=== PATIENT | male | born 1935 | race Caucasian/White ===

== ENCOUNTER 2019-06-23 00:12 | Day surgery (SDC) | payer MEDICARE, OTHER ==
[~2019-06-23 00:12] MED LIST: AMLO5 PO; ASPI325 PO; ASPI81CH PO; CEFD300 PO; CEFU500 PO; CELE100 PO; CEPH500 PO; CIPR500 PO; Hydrochloroth12.5 MG PO; LEVFLO500 PO; LISI20 PO; LOVA40 PO; METF500 PO; MONDOXYNE NL100 MG PO; ROPI1 PO; WARF10 PO; WARF5 PO; WARF7.5 PO
== END 2019-06-23 15:40 | disposition home or self-care (01) ==
LOC: ATC 00:12
DX: N39.0 Urinary tract infection, site not specified (principal); J44.9 Chronic obstructive pulmonary disease, unspecified; E78.5 Hyperlipidemia, unspecified; E11.9 Type 2 diabetes mellitus without complications; I10 Essential (primary) hypertension; E78.00 Pure hypercholesterolemia, unspecified; Z88.5 Allergy status to narcotic agent; Z79.82 Long term (current) use of aspirin; Z79.84 Long term (current) use of oral hypoglycemic drugs; Z79.899 Other long term (current) drug therapy
CPT/HCPCS: 96365; J2185

== ENCOUNTER 2019-06-25 00:51 | Day surgery (SDC) | payer MEDICARE, OTHER | END 2019-06-25 14:20 | disposition home or self-care (01) | LOC: ATC 00:51 | DX: N39.0 Urinary tract infection, site not specified (principal); E78.00 Pure hypercholesterolemia, unspecified; I10 Essential (primary) hypertension; J44.9 Chronic obstructive pulmonary disease, unspecified; Z79.84 Long term (current) use of oral hypoglycemic drugs; Z79.82 Long term (current) use of aspirin; Z79.899 Other long term (current) drug therapy; Z88.5 Allergy status to narcotic agent | CPT/HCPCS: 96365; J2185 ==

== ENCOUNTER 2019-07-01 | Day surgery (SDC) | payer MEDICARE, OTHER ==
[2019-07-01] MEDS ORDERED: MEROPENEM1 GM IV (09:15)
== END 2019-07-01 16:31 | disposition home or self-care (01) ==
LOC: ATC
DX: N39.0 Urinary tract infection, site not specified (principal); E11.9 Type 2 diabetes mellitus without complications; I10 Essential (primary) hypertension; E78.00 Pure hypercholesterolemia, unspecified; J44.9 Chronic obstructive pulmonary disease, unspecified; Z88.5 Allergy status to narcotic agent; E78.5 Hyperlipidemia, unspecified; Z79.01 Long term (current) use of anticoagulants; Z79.82 Long term (current) use of aspirin; Z79.84 Long term (current) use of oral hypoglycemic drugs
CPT/HCPCS: 96365; J2185

== ENCOUNTER 2020-04-17 10:35 | Inpatient (IN) | payer MEDICARE, OTHER ==
[~2020-04-17] VITALS: Ht 185.4 cm; Wt 114.9 kg
[~2020-04-17 10:35] MED LIST changes: -ASPI81CH PO; +Aspirin EC81 MG PO; +MEROPENEM1 GM IV
[2020-04-17 11:45] LABS: BASOPHILS ABSOLUTE AUTO 0.03 K/mm3 (0.00-0.23); BASOPHILS PERCENT AUTO 0 % (0-2); EOSINOPHILS ABSOLUTE AUTO 0.01 K/mm3 (0.00-0.68); EOSINOPHILS PERCENT AUTO 0 % (0-6); IMMATURE GRAN ABSOLUTE AUTO 0.07 K/mm3 (0.00-0.10); IMMATURE GRAN PERCENT AUTO 1 % (0-1); LYMPHOCYTES ABSOLUTE AUTO 1.24 K/mm3 (0.84-5.20); LYMPHOCYTES PERCENT AUTO 8 % (21-46); MONOCYTES PERCENT AUTO 11 % (4-13); Mean Corpuscular HGB 27.5 pg (26.0-34.0); Mean Corpuscular HGB Conc 31.9 g/dL (31.5-36.5); Mean Corpuscular Volume 86 fL (80-100); Mean Platelet Volume 11.7 fL (9.1-12.4); NEUTROPHILS ABSOLUTE AUTO 12.25 K/mm3 (1.96-9.15); NEUTROPHILS PERCENT AUTO 80 % (41-73); Platelet Count 208 K/mm3 (150-400); RDW Coefficient Variation 14.2 % (11.7-14.2); RDW Standard Deviation 44.9 fL (35.1-46.3); Red Blood Cell Count 5.46 M/mm3 (4.30-5.90)
[2020-04-17 12:03] LABS: Alanine Aminotransfer (ALT/SGP 19 U/L (12-78); Albumin, Blood 3.2 g/dL (3.4-5.0); Albumin/Globulin Ratio 0.7 (0.8-1.8); Alk Phos 115 U/L (50-136); Anion Gap 10 mmol/L (6-16); Aspartate Aminotrans (AST/SGOT 23 U/L (12-37); Bilirubin, Total 1.1 mg/dL (0.1-1.0); Blood Urea Nitrogen 28 mg/dL (8-24); Bun/Creatinine Ratio 28.6 (12.0-20.0); CO2, Blood 19 mmol/L (21-32); Calcium, Blood 9.7 mg/dL (8.5-10.1); Chloride, Blood 108 mmol/L (98-108); Creatinine, Blood 0.98 mg/dL (0.60-1.20); Globulin, Blood 4.6 g/dL (2.2-4.0); Glomerular Filtration Rate >60 (60-); Glucose, Blood 167 mg/dL (70-99); Potassium, Blood 4.4 mmol/L (3.5-5.5); Sodium, Blood 137 mmol/L (136-145); Total Protein, Blood 7.8 g/dL (6.4-8.2); Troponin I 0.021 ng/mL (0.000-0.040)
[2020-04-17 12:03] LABS: Source, Urine Clean Catch
[2020-04-17 12:09] LABS: Appearance, Urine Clear (Clear); Bilirubin, Urine Neg (Neg); Blood, Urine 2+ (Neg); Color, Urine Yellow (P-Yellow); Glucose Qualitative, Urine 1+ (Neg); Ketones, Urine 1+ (Neg); Leukocyte Esterase, Urine 3+ (Neg); Nitrite, Urine Neg (Neg); Protein, Urine 2+ (Neg); Specific Gravity, Urine 1.015 (1.003-1.022); Urobilinogen, Urine NORM (Normal)
[2020-04-17 12:38] LABS: Bacteria Many /hpf; Squamous Epithelial Cells Rare /hpf (Few)
[2020-04-17] MEDS ORDERED: FUROSEMIDE20 MG PO (13:03)
[2020-04-17] MEDS ORDERED: POTA8 PO (13:05)
--- NOTE | 2020-04-18 04:37 | NUR ---
SHIFT SUMMARY PT WAS NEW ER ADMIT @1835, NO ACUTE CHANGES THIS SHIFT, NO C/O ANY KIND, UPDATED SON ON PT'S PHONE (PT IS VERY [place]), SLEPT T/O THE NIGHT & SLEEPING AT THIS TIME, CALL LIGHT IN REACH, WILL CONT TO MONITOR UNTIL REPORT GIVEN TO DAY RN.
[2020-04-18 05:16] LABS: BASOPHILS ABSOLUTE AUTO 0.03 K/mm3 (0.00-0.23); BASOPHILS PERCENT AUTO 0 % (0-2); EOSINOPHILS ABSOLUTE AUTO 0.01 K/mm3 (0.00-0.68); EOSINOPHILS PERCENT AUTO 0 % (0-6); Hematocrit 39.3 % (37.0-53.0); Hemoglobin 12.7 g/dL (13.5-17.5); IMMATURE GRAN ABSOLUTE AUTO 0.07 K/mm3 (0.00-0.10); IMMATURE GRAN PERCENT AUTO 1 % (0-1); LYMPHOCYTES ABSOLUTE AUTO 1.28 K/mm3 (0.84-5.20); LYMPHOCYTES PERCENT AUTO 9 % (21-46); MONOCYTES PERCENT AUTO 12 % (4-13); Mean Corpuscular HGB Conc 32.3 g/dL (31.5-36.5); Mean Corpuscular Volume 87 fL (80-100); Mean Platelet Volume 11.4 fL (9.1-12.4); NEUTROPHILS ABSOLUTE AUTO 10.64 K/mm3 (1.96-9.15); NEUTROPHILS PERCENT AUTO 78 % (41-73); Platelet Count 197 K/mm3 (150-400); RDW Coefficient Variation 14.2 % (11.7-14.2); RDW Standard Deviation 45.3 fL (35.1-46.3); Red Blood Cell Count 4.54 M/mm3 (4.30-5.90); White Blood Cell Count 13.73 K/mm3 (4.00-11.30)
[2020-04-18 05:39] LABS: Anion Gap 7 mmol/L (6-16); Blood Urea Nitrogen 37 mg/dL (8-24); Bun/Creatinine Ratio 32.5 (12.0-20.0); CO2, Blood 23 mmol/L (21-32); Chloride, Blood 110 mmol/L (98-108); Creatinine, Blood 1.14 mg/dL (0.60-1.20); Glomerular Filtration Rate >60 (60-); Glucose, Blood 191 mg/dL (70-99); Magnesium, Blood 2.4 mg/dL (1.6-2.4); Potassium, Blood 3.7 mmol/L (3.5-5.5); Sodium, Blood 140 mmol/L (136-145)
--- NOTE | 2020-04-18 17:36 | NUR ---
ADMIT: 04/17/20 DISCHARGE: DX: Severe sepsis secondary to uti CC: cpeabody PIETRO CALL: RESIDENCE: home with son lives in town. 2 STORY HOUSE, DOES NOT USE UPSTAIRS, 3 STEPS TO ENTER THE HOME. CAREGIVER: Michaela Talbert, Spouse / Partner, (has dementia); Jose Roberto Talbert, Son. Dawood Talbert, Son/POA. DX: HARD OF HEARING, HTN, Prostate cancer, Bilateral knee pain, Moribid obesity, DM-stype 2, see list DME: walker and cane, cpap in the hospital room. Sleeps in recliner. CCM: None HOME HEALTH: None SUMMARY: Admit 04/17/20 04/18/20 Met with Saud and SonJose Roberto in the patients room. PT and OT are both reccommending SNF in todays evaluations. Deo Cid says Saud and his would prefer that he not go to a SNF for rehab. They will most likely want home health for PT OT. PT is recommending a front wheel walker, Wheelchair and multimedia educational specialist care if returning home. Discussed care at home with Jose Roberto , gave him resources for caregivers, discussed medicaid and broshure for [place] and [place] [facility]. They own their home and have small income. Jose Roberto says himself or goes to the house everyday. but they do not have care in the home at this time. Asked if living with a family member was possible. He plans to speak with his brothers and sisters to discuss future planning and care. Will follow patient for discharge planning. cp 1: Sepsis due to urinary tract infection A/P: Lactic acid over 2, with mild tachycardia and leukocytosis. No septic shock. Started on Rocephin which his last urine culture was sensitive to. Blood and urine cultures pending. 2: Edema A/P: He is on lasix and HCTZ outpatient. Has 2+ pitting edema on exam. Last ECHO was 5 years ago and showed some grade I diastolic dysfunction. Edema has been worsening. Bilateral and equal. BNP mildly elevated, no pleural effusions/edema on CXR. -Compression socks. -Continue lasix and HCTZ, as tolerated. -ECHO ordered. 3: Hypertension A/P: Well controlled on admission. Continue home meds with hold parameters. 4: Weakness of both lower extremities A/P: PT/OT Likely secondary to UTI/sepsis and deconditioning. However it weakness is persistent, consider statin induced.
--- NOTE | 2020-04-18 18:45 | NUR ---
SHIFT SUMMARY PT IS A&O BUT IS HARD OF HEARING. PT IS 2 PERSON ASSIST WITH FWW TO CHAIR OR BEDSIDE COMODE. PT DENIES P/N/V. PT WAS UP IN THE CHAIR FOR PART OF THE DAY. PT HAD A 2 GRAM POS BLOOD CULTURES DURING THE SHIFT. NOTIFIED AND HE WAS STARTED ON VANCO. PT ACCEPTING OF CARE. PT IN BED WITH CALL LIGHT W/IN REACH.
--- NOTE | 2020-04-19 04:50 | NUR ---
Patient A&OX3. very [place]. No complaints of pain or discomfort overnight. No difficulties wearing CPAP. Did not get patient OOB, however was able to participate in repositioning. Suprapubic cath draining clear migue urine without sediment or odor. Very concerned about his for whom he is a caregiver. She has dementia. No changes from Evening report
[2020-04-19 05:45] LABS: BASOPHILS ABSOLUTE AUTO 0.02 K/mm3 (0.00-0.23); BASOPHILS PERCENT AUTO 0 % (0-2); EOSINOPHILS ABSOLUTE AUTO 0.05 K/mm3 (0.00-0.68); EOSINOPHILS PERCENT AUTO 0 % (0-6); Hematocrit 40.5 % (37.0-53.0); Hemoglobin 13.2 g/dL (13.5-17.5); IMMATURE GRAN ABSOLUTE AUTO 0.06 K/mm3 (0.00-0.10); IMMATURE GRAN PERCENT AUTO 0 % (0-1); LYMPHOCYTES ABSOLUTE AUTO 1.42 K/mm3 (0.84-5.20); LYMPHOCYTES PERCENT AUTO 10 % (21-46); MONOCYTES ABSOLUTE AUTO 1.37 K/mm3 (0.16-1.47); MONOCYTES PERCENT AUTO 9 % (4-13); Mean Corpuscular HGB 27.7 pg (26.0-34.0); Mean Corpuscular HGB Conc 32.6 g/dL (31.5-36.5); Mean Corpuscular Volume 85 fL (80-100); Mean Platelet Volume 11.9 fL (9.1-12.4); NEUTROPHILS ABSOLUTE AUTO 11.96 K/mm3 (1.96-9.15); NEUTROPHILS PERCENT AUTO 81 % (41-73); Platelet Count 208 K/mm3 (150-400); RDW Coefficient Variation 14.3 % (11.7-14.2); RDW Standard Deviation 44.2 fL (35.1-46.3); Red Blood Cell Count 4.77 M/mm3 (4.30-5.90); White Blood Cell Count 14.88 K/mm3 (4.00-11.30)
[2020-04-19 06:09] LABS: Alanine Aminotransfer (ALT/SGP 23 U/L (12-78); Albumin, Blood 2.5 g/dL (3.4-5.0); Albumin/Globulin Ratio 0.6 (0.8-1.8); Alk Phos 100 U/L (50-136); Anion Gap 10 mmol/L (6-16); Aspartate Aminotrans (AST/SGOT 24 U/L (12-37); Bilirubin, Total 0.7 mg/dL (0.1-1.0); Blood Urea Nitrogen 47 mg/dL (8-24); Bun/Creatinine Ratio 37.3 (12.0-20.0); CO2, Blood 20 mmol/L (21-32); Calcium, Blood 8.7 mg/dL (8.5-10.1); Chloride, Blood 108 mmol/L (98-108); Creatinine, Blood 1.26 mg/dL (0.60-1.20); Globulin, Blood 4.1 g/dL (2.2-4.0); Glomerular Filtration Rate 58 (60-); Glucose, Blood 222 mg/dL (70-99); Magnesium, Blood 2.4 mg/dL (1.6-2.4); Potassium, Blood 3.4 mmol/L (3.5-5.5); Sodium, Blood 138 mmol/L (136-145); Total Protein, Blood 6.6 g/dL (6.4-8.2)
[2020-04-19 06:15] LABS: C-REACTIVE PROTEIN, EXT RANGE >19.000 mg/dL (0.000-0.300)
--- NOTE | 2020-04-19 17:00 | NUR ---
SHIFT SUMMARY- PT A/OX3, FORGETFUL AT TIMES. VERY [place], BILATERAL HEARING AIDES IN PLACE. PT DENIES ANY COMPLAINTS T/O THE DAY. LS CLEAR, ON RA. CPAP AT HS, CONT BIOX IN PLACE. 1+ BLE EDEMA, HOWARD HOSE IN PLACE. PT UP TO CHAIR WITH 2 ASSIST, PT DID NOTE TO DO BETTER TODAY THAN YESTERDAY. SON BROUGHT IN LEG BRACES TODAY FOR PT TO WORK WITH THERAPY WITH. NEW IV PLACED. LUCAS BARNES'D. GOOD URINE OUTPUT WITH SUPRA PUBIC CATHETER. NO OTHER ACUTE CHANGES THIS SHIFT.
--- NOTE | 2020-04-19 17:10 | NUR ---
04/19/20, Physical Therapy Akin said Saud could be ready to go HOME by Friday, He would still need equipment and care at home. s/w Jose Roberto, son by telephone, requsting someone to come to his home to assess for safety, educated that Home health is only available once the patient is home. Updated Jose Roberto that Saud is showing improvement today and may be possible to go home later in the week. Discused Lift Chair, for insurance coverage of motor parts needs prescription, recommended he [facility] to [facility] to discuss chair availabily, cost and insurance coverage. Follow patient progress for home discharge.
--- NOTE | 2020-04-20 04:25 | NUR ---
SHIFT SUMMARY ADMITTED FOR SEPSIS. FULL CODE. AWAITING LABS & CULTURES TO IDENTIFY INFECTION, THEN POSSIBLY HOME W/HH VS PLACEMENT. CARE MANAGEMENT WILL ASSIST. FAMILY IS WONDERING IF THE SUPRAPUBIC CATHETER COULD BE CHANGED WHILE PT IS HERE AND THEY ARE WONDERING IF THE PT COULD GET EAR DROPS FOR HIS EAR WAX. TODAY THE PT WILL WORK WITH PYHYSICAL THERAPY. THE PT'S LEG BRACES ARE IN THE ROOM. PT IS SEVERELY [place], BILATERAL HEARING AIDS ARE IN ROOM.
[2020-04-20 05:09] LABS: BASOPHILS ABSOLUTE AUTO 0.04 K/mm3 (0.00-0.23); BASOPHILS PERCENT AUTO 0 % (0-2); EOSINOPHILS PERCENT AUTO 1 % (0-6); Hematocrit 38.9 % (37.0-53.0); Hemoglobin 12.5 g/dL (13.5-17.5); IMMATURE GRAN ABSOLUTE AUTO 0.09 K/mm3 (0.00-0.10); IMMATURE GRAN PERCENT AUTO 1 % (0-1); LYMPHOCYTES ABSOLUTE AUTO 1.69 K/mm3 (0.84-5.20); LYMPHOCYTES PERCENT AUTO 11 % (21-46); MONOCYTES ABSOLUTE AUTO 1.53 K/mm3 (0.16-1.47); MONOCYTES PERCENT AUTO 10 % (4-13); Mean Corpuscular HGB 27.5 pg (26.0-34.0); Mean Corpuscular HGB Conc 32.1 g/dL (31.5-36.5); Mean Corpuscular Volume 86 fL (80-100); Mean Platelet Volume 11.9 fL (9.1-12.4); NEUTROPHILS ABSOLUTE AUTO 12.36 K/mm3 (1.96-9.15); NEUTROPHILS PERCENT AUTO 78 % (41-73); Platelet Count 220 K/mm3 (150-400); RDW Coefficient Variation 14.2 % (11.7-14.2); RDW Standard Deviation 45.1 fL (35.1-46.3); Red Blood Cell Count 4.55 M/mm3 (4.30-5.90); White Blood Cell Count 15.81 K/mm3 (4.00-11.30)
[2020-04-20 05:27] LABS: Bun/Creatinine Ratio 40.9 (12.0-20.0); Calcium, Blood 8.5 mg/dL (8.5-10.1); Creatinine, Blood 1.64 mg/dL (0.60-1.20); Potassium, Blood 3.8 mmol/L (3.5-5.5)
--- NOTE | 2020-04-20 11:08 | NUR ---
04/20/20 s/w Son Jose Roberto by telephone- cell # [phone]. They are purchasing a lift chair today, will garbage pick up man tommorrow at [employer]. Have a front wheel walker at home. Home health services for PT OT [place]- preference is [facility]. They can drive him home if he can step up 2 stairs and walk 20 feet. I plan to review PT assessment today, family agrees to pay for transport if he cannot walk into the home. Wheel chair.
--- NOTE | 2020-04-20 15:03 | NUR ---
SON IN TO VISIT AND SHOWS RECEIPT FOR LIFT CHAIR THAT IS TO BE DELIVERED TOMORROW BETWEEN 10AM AND NOON. GOAL IS FOR PATIENT TO GO HOME WITH POSSIBLE HOME HEALTH. SON TAKES PATIENTS HEARING AIDS TO BE CLEANED.
--- NOTE | 2020-04-20 15:57 | NUR ---
ALERT. ORIENTED. VERY [place] TO THE POINT OF BETTER TO WRITE QUESTIONS ON PAPER FOR PATIENT. PER [facility] PATIENT MAX ASSIST TODAY. HEARING AIDS WITH SON SO HE CAN BRING THEM IN FOR CLEANING WITH SON TO BRING BACK TODAY OR TOMORROW.NO C/O FROM PATIENT. IV PATENT. SUPER PUBIC CATH TO DRAINING TO GRAVITY. POSSIBLE D'C TO HOME TOMORROW WITH HOME HEALTH AND RELATIVES FOR ASSISTANCE. [facility].
--- NOTE | 2020-04-20 18:03 | NUR ---
TOOK OVER CARE AT 1630. PT AO AND COOPERATIVE OF CARE. WILL CONTIUE TO MONITOR. PT UP IN CHAIR FOR MEAL CALL LIGHT WITHIN REACH. PT DENIES ANY NEEDS AT THIS TIME.
--- NOTE | 2020-04-21 04:13 | NUR ---
SHIFT SUMMARY ADMITTED FOR SEPSIS/UTI. FULL CODE. PLAN IS FOR DC W/HH. FAMILY IS AVAILABLE FOR ASSISTANCE W/CARE. HE USES A CPAP AT NIGHT. SEVERELY [place]. LEG BRACES FOR WALKING ARE IN THE ROOM. CHRONIC SUPRAPUBIC CATHETER IS IN PLACE.
[2020-04-21] MEDS ORDERED: CEFD300 PO ×2 (14:01→14:05)
--- NOTE | 2020-04-21 14:45 | NUR ---
PT DISCHARGE REVIEWED WITH PT AND SON. VERVBALIZED UNDERSTANDING MEDS AND INST. IV PULLED INTACT. NO TELE. PT WHEELED TO DOOR BY TRANSPORT AT 1440
--- NOTE | 2020-04-21 18:32 | NUR ---
MORIS: ADMIT 04/17/20 04/21/20 DISCHARGE HOME TODAY BY WHEELCHAIR TRANSPORT. BECCA IS STILL A 2 PERSON ASSIST FOR STANDING. NEW LIFT CHAIR DELIVERED TO HOME YESTERDAY. FAMILY WILL PURCHASE A COMMODE. HOME HEALTH WITH [facility] WAS ORDERED, NURSE, PT OT BATHAID DIGITAL ANALYTICS MANAGER. ASSISTED LIVING IS BEING CONSIDERED FOR THE FUTURE, FAMILY IS PROVIDING THE SERVICE PLUMBER CARE RECCOMMENDED BY PT OT ASSESSMENTS. JED IS EXPECTING PIETRO CALL, HAS FACE TO FACE CAPABILITY FOR TELEHEALTH.
[2020-07-17] MEDS ORDERED: ACET500 PO (16:33)
[2020-07-17] MEDS ORDERED: TOPICAINE113 GM TD (16:40)
[2020-07-17] MEDS ORDERED: ATOR20 PO (16:40)
[2020-07-17] MEDS ORDERED: METHENAMINE MAND1 GM PO (16:41)
[2020-07-17] MEDS ORDERED: LASIX20 M2 PO (16:42)
[2020-07-17] MEDS ORDERED: MELATONIN5 M1 PO (16:42)
== END 2020-04-21 14:37 | disposition home health service (06) | DRG 871 ==
LOC: ER 10:35 → MEDS 16:02 → ENPENDDIS 04-21 13:04 → MEDS 04-21 14:37
PROVIDERS: Emergency Medicine; Hospitalist; Internal Medicine; ADMIT Student in an Organized Health Care Education/Training Program
DX: A41.9 Sepsis, unspecified organism (principal); G93.41 Metabolic encephalopathy; I50.23 Acute on chronic systolic (congestive) heart failure; N17.9 Acute kidney failure, unspecified; R65.20 Severe sepsis without septic shock; Z20.822 Contact with and (suspected) exposure to COVID-19; G47.33 Obstructive sleep apnea (adult) (pediatric); I11.0 Hypertensive heart disease with heart failure; E11.9 Type 2 diabetes mellitus without complications; Z85.46 Personal history of malignant neoplasm of prostate; Z86.718 Personal history of other venous thrombosis and embolism; F03.90 Unspecified dementia, unspecified severity, without behavioral disturbance, psychotic disturbance, mood disturbance, and anxiety; H91.90 Unspecified hearing loss, unspecified ear; G31.84 Mild cognitive impairment of uncertain or unknown etiology; M17.0 Bilateral primary osteoarthritis of knee
CPT/HCPCS: 36415; 71046; 80048; 80053; 81001; 82947; 83605; 83735; 83880; 84100; 84484; 85025; 85651; 86140; 87040; 87077; 87086; 87186; 93005; 93010; 94660; 94762; 96365; 97110; 97116; 97129; 97130; 97162; 97166; 97530; 97535; 99285-25; A9270; C8929; J0696; J1650; J1940; J3370; J7050; Q9957

== ENCOUNTER → 2020-05-11 | Outpatient (CLI) | payer MEDICARE, OTHER ==
[~2020-05-11] MED LIST changes: +ACET500 PO; +ATOR20 PO; +FUROSEMIDE20 MG PO; +LASIX20 M2 PO; +MELATONIN5 M1 PO; +METHENAMINE MAND1 GM PO; +POTA8 PO; +TOPICAINE113 GM TD
[2020-05-11 19:53] LABS: BASOPHILS ABSOLUTE AUTO 0.05 K/mm3 (0.00-0.23); BASOPHILS PERCENT AUTO 0 % (0-2); EOSINOPHILS ABSOLUTE AUTO 0.34 K/mm3 (0.00-0.68); EOSINOPHILS PERCENT AUTO 2 % (0-6); Hematocrit 41.8 % (37.0-53.0); Hemoglobin 12.8 g/dL (13.5-17.5); IMMATURE GRAN ABSOLUTE AUTO 0.27 K/mm3 (0.00-0.10); IMMATURE GRAN PERCENT AUTO 2 % (0-1); LYMPHOCYTES ABSOLUTE AUTO 1.86 K/mm3 (0.84-5.20); LYMPHOCYTES PERCENT AUTO 12 % (21-46); MONOCYTES PERCENT AUTO 6 % (4-13); Mean Corpuscular HGB 26.8 pg (26.0-34.0); Mean Corpuscular HGB Conc 30.6 g/dL (31.5-36.5); Mean Corpuscular Volume 87 fL (80-100); Mean Platelet Volume 11.9 fL (9.1-12.4); NEUTROPHILS ABSOLUTE AUTO 11.98 K/mm3 (1.96-9.15); NEUTROPHILS PERCENT AUTO 78 % (41-73); Platelet Count 317 K/mm3 (150-400); RDW Coefficient Variation 14.1 % (11.7-14.2); RDW Standard Deviation 45.6 fL (35.1-46.3); Red Blood Cell Count 4.78 M/mm3 (4.30-5.90)
[2020-05-11 20:11] LABS: Albumin, Blood 2.4 g/dL (3.4-5.0); Anion Gap 8 mmol/L (6-16); Blood Urea Nitrogen 41 mg/dL (8-24); Bun/Creatinine Ratio 44.1 (12.0-20.0); CO2, Blood 24 mmol/L (21-32); Calcium, Blood 9.9 mg/dL (8.5-10.1); Chloride, Blood 107 mmol/L (98-108); Creatinine, Blood 0.93 mg/dL (0.60-1.20); Glomerular Filtration Rate >60 (60-); Glucose, Blood 151 mg/dL (70-99); Phosphorus, Blood 3.4 mg/dL (2.5-4.9); Potassium, Blood 4.6 mmol/L (3.5-5.5); Sodium, Blood 139 mmol/L (136-145)
== END | disposition home or self-care (01) ==
LOC: PLD 19:26 → LAB SHORT 19:26
PROVIDERS: Family Medicine
DX: N17.9 Acute kidney failure, unspecified (principal); E11.69 Type 2 diabetes mellitus with other specified complication; N39.0 Urinary tract infection, site not specified
CPT/HCPCS: 80069; 83036; 85025; 86140

== ENCOUNTER → 2020-05-15 | Outpatient (CLI) | payer MEDICARE, OTHER | END | disposition home or self-care (01) | LOC: LAB SHORT 14:44 → LAB 14:44 | DX: N39.0 Urinary tract infection, site not specified (principal) | CPT/HCPCS: 87077; 87086; 87186 ==

== ENCOUNTER → 2020-05-19 | Outpatient (CLI) | payer MEDICARE, OTHER ==
[2020-05-19 13:40] LABS: Source, Urine Catheter
[2020-05-19 13:58] LABS: Appearance, Urine Hazy (Clear); Bilirubin, Urine Neg (Neg); Blood, Urine 5+ (Neg); Color, Urine Yellow (P-Yellow); Glucose Qualitative, Urine Neg (Neg); Ketones, Urine Neg (Neg); Leukocyte Esterase, Urine 2+ (Neg); Nitrite, Urine Neg (Neg); Protein, Urine 1+ (Neg); Specific Gravity, Urine 1.015 (1.003-1.022); Urobilinogen, Urine NORM (Normal)
[2020-05-19 14:45] LABS: Bacteria Rare /hpf; Squamous Epithelial Cells Not Seen /hpf (Few)
== END | disposition home or self-care (01) ==
LOC: LAB SHORT 12:30 → LAB 12:30
PROVIDERS: Family Medicine
DX: N39.0 Urinary tract infection, site not specified (principal)
CPT/HCPCS: 81001; 87077; 87086; 87186

== ENCOUNTER → 2020-05-22 | Outpatient (CLI) | payer MEDICARE, OTHER ==
[2020-05-22 19:37] LABS: BASOPHILS ABSOLUTE AUTO 0.05 K/mm3 (0.00-0.23); BASOPHILS PERCENT AUTO 0 % (0-2); EOSINOPHILS ABSOLUTE AUTO 0.29 K/mm3 (0.00-0.68); EOSINOPHILS PERCENT AUTO 2 % (0-6); Hematocrit 35.2 % (37.0-53.0); IMMATURE GRAN PERCENT AUTO 1 % (0-1); LYMPHOCYTES ABSOLUTE AUTO 2.04 K/mm3 (0.84-5.20); LYMPHOCYTES PERCENT AUTO 13 % (21-46); MONOCYTES ABSOLUTE AUTO 1.05 K/mm3 (0.16-1.47); MONOCYTES PERCENT AUTO 7 % (4-13); Mean Corpuscular HGB 26.6 pg (26.0-34.0); Mean Corpuscular HGB Conc 31.3 g/dL (31.5-36.5); Mean Corpuscular Volume 85 fL (80-100); Mean Platelet Volume 11.2 fL (9.1-12.4); NEUTROPHILS ABSOLUTE AUTO 11.96 K/mm3 (1.96-9.15); NEUTROPHILS PERCENT AUTO 77 % (41-73); Platelet Count 367 K/mm3 (150-400); RDW Coefficient Variation 14.3 % (11.7-14.2); RDW Standard Deviation 44.8 fL (35.1-46.3); Red Blood Cell Count 4.13 M/mm3 (4.30-5.90); White Blood Cell Count 15.59 K/mm3 (4.00-11.30)
[2020-05-22 19:44] LABS: Anion Gap 8 mmol/L (6-16); Blood Urea Nitrogen 41 mg/dL (8-24); Bun/Creatinine Ratio 39.8 (12.0-20.0); CO2, Blood 22 mmol/L (21-32); Calcium, Blood 9.3 mg/dL (8.5-10.1); Chloride, Blood 109 mmol/L (98-108); Creatinine, Blood 1.03 mg/dL (0.60-1.20); Glomerular Filtration Rate >60 (60-); Glucose, Blood 104 mg/dL (70-99); Potassium, Blood 5.1 mmol/L (3.5-5.5); Sodium, Blood 139 mmol/L (136-145)
== END | disposition home or self-care (01) ==
LOC: LAB 12:30 → LAB SHORT 12:30
PROVIDERS: Family Medicine
DX: I50.20 Unspecified systolic (congestive) heart failure (principal); N39.0 Urinary tract infection, site not specified
CPT/HCPCS: 80048; 85025; 86140

== ENCOUNTER 2020-07-18 06:48 | Day surgery (SDC) | payer MEDICARE, OTHER ==
[~2020-07-18] VITALS: Ht 177.8 cm; Wt 105.5 kg
--- NOTE | 2020-07-18 11:36 | NUR ---
PT TR BAND REMOVED, DRESSING/SPLINT PLACED TO R WRIST, IV DC'D INTACT, PT DRESSED AND 2 PERSON ASSIST TO WC. PT DC'D BY WC BY THIS RN, SON/DAUGHTERINLAW DRIVING PT HOME.
== END 2020-07-18 12:00 | disposition home or self-care (01) ==
LOC: MHTC 06:48
DX: I25.10 Atherosclerotic heart disease of native coronary artery without angina pectoris (principal); I48.0 Paroxysmal atrial fibrillation; I47.2 Ventricular tachycardia; E11.9 Type 2 diabetes mellitus without complications; I10 Essential (primary) hypertension; I25.5 Ischemic cardiomyopathy; G47.33 Obstructive sleep apnea (adult) (pediatric); Z79.84 Long term (current) use of oral hypoglycemic drugs
CPT/HCPCS: 76937; 82947; 93458; 99152; 99153; C1769; C1894; J1644; J2250; J3010; J7030; J7050; Q9967

== ENCOUNTER → 2020-12-28 | Outpatient (CLI) | payer MEDICARE, OTHER ==
[~2020-12-28] MED LIST changes: +ASCO500 PO; +DOXY100 PO; +ELIQUIS2.5 MG PO; +LIDOCAINE1 EAC1 TOP; +MULTI-VITAMIN1 EAC2 PO; +Prinivil10 MG PO; +SPIR25 PO; -TOPICAINE113 GM TD; +VITAMIN D31000 UNI1 PO; +VOLTAREN ARTHRI20 GM TOP
[2020-12-28 15:44] LABS: BASOPHILS ABSOLUTE AUTO 0.05 K/mm3 (0.00-0.23); BASOPHILS PERCENT AUTO 0 % (0-2); EOSINOPHILS ABSOLUTE AUTO 0.16 K/mm3 (0.00-0.68); EOSINOPHILS PERCENT AUTO 1 % (0-6); Hematocrit 26.8 % (37.0-53.0); Hemoglobin 8.2 g/dL (13.5-17.5); IMMATURE GRAN PERCENT AUTO 1 % (0-1); LYMPHOCYTES ABSOLUTE AUTO 2.47 K/mm3 (0.84-5.20); LYMPHOCYTES PERCENT AUTO 14 % (21-46); MONOCYTES ABSOLUTE AUTO 1.05 K/mm3 (0.16-1.47); MONOCYTES PERCENT AUTO 6 % (4-13); Mean Corpuscular HGB Conc 30.6 g/dL (31.5-36.5); Mean Corpuscular Volume 82 fL (80-100); Mean Platelet Volume 10.7 fL (9.1-12.4); NEUTROPHILS ABSOLUTE AUTO 13.46 K/mm3 (1.96-9.15); NEUTROPHILS PERCENT AUTO 77 % (41-73); Platelet Count 394 K/mm3 (150-400); RDW Coefficient Variation 17.3 % (11.7-14.2); RDW Standard Deviation 50.8 fL (35.1-46.3); Red Blood Cell Count 3.28 M/mm3 (4.30-5.90); White Blood Cell Count 17.39 K/mm3 (4.00-11.30)
[2020-12-28 15:56] LABS: Alanine Aminotransfer (ALT/SGP 22 U/L (12-78); Albumin, Blood 2.4 g/dL (3.4-5.0); Albumin/Globulin Ratio 0.6 (0.8-1.8); Alk Phos 130 U/L (40-126); Anion Gap 16 mmol/L (6-16); Aspartate Aminotrans (AST/SGOT 15 U/L (12-37); Bilirubin, Total 0.4 mg/dL (0.1-1.0); Blood Urea Nitrogen 50 mg/dL (8-24); Bun/Creatinine Ratio 30.7 (12.0-20.0); CO2, Blood 18 mmol/L (21-32); Chloride, Blood 107 mmol/L (98-108); Creatinine, Blood 1.63 mg/dL (0.60-1.20); Globulin, Blood 4.2 g/dL (2.2-4.0); Glomerular Filtration Rate 40 (60-); Glucose, Blood 139 mg/dL (70-99); Potassium, Blood 4.6 mmol/L (3.5-5.5); Sodium, Blood 141 mmol/L (136-145); Total Protein, Blood 6.6 g/dL (6.4-8.2)
[2020-12-28 15:57] LABS: Troponin I <0.017 ng/mL (0.000-0.040)
== END | disposition home or self-care (01) ==
LOC: LAB 15:37 → LAB SHORT 15:37
PROVIDERS: Chiropractor
DX: I95.9 Hypotension, unspecified (principal); E86.0 Dehydration; R82.79 Other abnormal findings on microbiological examination of urine
CPT/HCPCS: 80053; 83880; 84484; 85025; 87077; 87086; 87186

== ENCOUNTER → 2020-12-29 | Outpatient (CLI) | payer MEDICARE, OTHER ==
[2020-12-29 09:35] LABS: BASOPHILS ABSOLUTE AUTO 0.06 K/mm3 (0.00-0.23); BASOPHILS PERCENT AUTO 0 % (0-2); EOSINOPHILS ABSOLUTE AUTO 0.13 K/mm3 (0.00-0.68); EOSINOPHILS PERCENT AUTO 1 % (0-6); Hematocrit 28.4 % (37.0-53.0); Hemoglobin 8.7 g/dL (13.5-17.5); IMMATURE GRAN ABSOLUTE AUTO 0.19 K/mm3 (0.00-0.10); IMMATURE GRAN PERCENT AUTO 1 % (0-1); LYMPHOCYTES ABSOLUTE AUTO 2.31 K/mm3 (0.84-5.20); LYMPHOCYTES PERCENT AUTO 14 % (21-46); MONOCYTES ABSOLUTE AUTO 0.95 K/mm3 (0.16-1.47); MONOCYTES PERCENT AUTO 6 % (4-13); Mean Corpuscular HGB 25.4 pg (26.0-34.0); Mean Corpuscular HGB Conc 30.6 g/dL (31.5-36.5); Mean Corpuscular Volume 83 fL (80-100); Mean Platelet Volume 10.5 fL (9.1-12.4); NEUTROPHILS ABSOLUTE AUTO 13.26 K/mm3 (1.96-9.15); NEUTROPHILS PERCENT AUTO 78 % (41-73); Platelet Count 429 K/mm3 (150-400); RDW Coefficient Variation 17.5 % (11.7-14.2); RDW Standard Deviation 52.2 fL (35.1-46.3); Red Blood Cell Count 3.43 M/mm3 (4.30-5.90)
[2020-12-29 09:44] LABS: Albumin, Blood 2.5 g/dL (3.4-5.0); Albumin/Globulin Ratio 0.6 (0.8-1.8); Bilirubin, Total 0.3 mg/dL (0.1-1.0); Bun/Creatinine Ratio 33.3 (12.0-20.0); Calcium, Blood 9.1 mg/dL (8.5-10.1); Creatinine, Blood 1.53 mg/dL (0.60-1.20); Globulin, Blood 4.5 g/dL (2.2-4.0); Potassium, Blood 4.5 mmol/L (3.5-5.5)
== END | disposition home or self-care (01) ==
LOC: LAB SHORT 09:30 → LAB 09:30
PROVIDERS: Physician Assistant Surgical
DX: I95.9 Hypotension, unspecified (principal)
CPT/HCPCS: 80053; 83880; 85025

== ENCOUNTER 2020-12-30 12:52 | Inpatient (IN) | payer MEDICARE, OTHER ==
[~2020-12-30] VITALS: Ht 177.8 cm; Wt 98.2 kg
[~2020-12-30 12:52] MED LIST changes: -ASCO500 PO; -DOXY100 PO; -ELIQUIS2.5 MG PO; -MULTI-VITAMIN1 EAC2 PO; -SPIR25 PO; -VITAMIN D31000 UNI1 PO; -VOLTAREN ARTHRI20 GM TOP
[2020-12-30 14:21] LABS: BASOPHILS ABSOLUTE AUTO 0.04 K/mm3 (0.00-0.23); BASOPHILS PERCENT AUTO 0 % (0-2); EOSINOPHILS ABSOLUTE AUTO 0.19 K/mm3 (0.00-0.68); EOSINOPHILS PERCENT AUTO 1 % (0-6); Hematocrit 25.5 % (37.0-53.0); Hemoglobin 7.9 g/dL (13.5-17.5); IMMATURE GRAN ABSOLUTE AUTO 0.17 K/mm3 (0.00-0.10); IMMATURE GRAN PERCENT AUTO 1 % (0-1); LYMPHOCYTES PERCENT AUTO 14 % (21-46); MONOCYTES ABSOLUTE AUTO 1.04 K/mm3 (0.16-1.47); MONOCYTES PERCENT AUTO 6 % (4-13); Mean Corpuscular HGB 25.3 pg (26.0-34.0); Mean Corpuscular Volume 82 fL (80-100); NEUTROPHILS ABSOLUTE AUTO 13.15 K/mm3 (1.96-9.15); NEUTROPHILS PERCENT AUTO 78 % (41-73); Platelet Count 332 K/mm3 (150-400); RDW Coefficient Variation 17.1 % (11.7-14.2); RDW Standard Deviation 50.4 fL (35.1-46.3); Red Blood Cell Count 3.12 M/mm3 (4.30-5.90); White Blood Cell Count 16.89 K/mm3 (4.00-11.30)
[2020-12-30 14:30] LABS: Anion Gap 7 mmol/L (6-16); Blood Urea Nitrogen 36 mg/dL (8-24); Bun/Creatinine Ratio 37.4 (12.0-20.0); CO2, Blood 19 mmol/L (21-32); Chloride, Blood 115 mmol/L (98-108); Creatinine, Blood 0.96 mg/dL (0.60-1.20); Glomerular Filtration Rate >60 (60-); Glucose, Blood 104 mg/dL (70-99); Potassium, Blood 4.6 mmol/L (3.5-5.5); Sodium, Blood 141 mmol/L (136-145)
[2020-12-30 16:05] LABS: SARS-Cov-2 (COVID-19) PCR, MMC NEGATIVE (NEGATIVE)
[2020-12-30 16:30] LABS: Source, Urine Catheter
[2020-12-30 16:35] LABS: Appearance, Urine Clear (Clear); Bilirubin, Urine Neg (Neg); Blood, Urine Neg (Neg); Color, Urine Yellow (P-Yellow); Glucose Qualitative, Urine Neg (Neg); Ketones, Urine Neg (Neg); Leukocyte Esterase, Urine Neg (Neg); Nitrite, Urine Neg (Neg); Protein, Urine Neg (Neg); Urobilinogen, Urine NORM (Normal)
[2020-12-30] MEDS ORDERED: ELIQUIS2.5 MG PO (17:43)
[2020-12-30] MEDS ORDERED: SPIR25 PO (17:44)
--- NOTE | 2020-12-30 20:25 | NUR ---
TRANSFER NOTE REPORT FROM CHANNING TY RN. PT TO FLOOR BY RASTA AND ANGELITA TO HOSPITAL BED. PT ORIENTED TO ROOM AND UNIT. CALL LIGHT WITHIN REACH.
[2020-12-30 20:48] LABS: Percent Saturation 9.6 % (20.0-50.0)
[2020-12-30 21:07] LABS: Thyroid Stimulating Hormone 1.6 uIU/mL (0.360-4.800)
[2020-12-30] MEDS ORDERED: VOLTAREN ARTHRI20 GM TOP (22:27)
[2020-12-31 05:14] LABS: BASOPHILS ABSOLUTE AUTO 0.06 K/mm3 (0.00-0.23); BASOPHILS PERCENT AUTO 0 % (0-2); EOSINOPHILS ABSOLUTE AUTO 0.47 K/mm3 (0.00-0.68); EOSINOPHILS PERCENT AUTO 3 % (0-6); Hematocrit 25.2 % (37.0-53.0); Hemoglobin 7.6 g/dL (13.5-17.5); IMMATURE GRAN ABSOLUTE AUTO 0.15 K/mm3 (0.00-0.10); IMMATURE GRAN PERCENT AUTO 1 % (0-1); LYMPHOCYTES ABSOLUTE AUTO 2.29 K/mm3 (0.84-5.20); LYMPHOCYTES PERCENT AUTO 16 % (21-46); MONOCYTES ABSOLUTE AUTO 1.04 K/mm3 (0.16-1.47); MONOCYTES PERCENT AUTO 7 % (4-13); Mean Corpuscular HGB 25.5 pg (26.0-34.0); Mean Corpuscular HGB Conc 30.2 g/dL (31.5-36.5); Mean Corpuscular Volume 85 fL (80-100); Mean Platelet Volume 10.8 fL (9.1-12.4); NEUTROPHILS ABSOLUTE AUTO 10.66 K/mm3 (1.96-9.15); NEUTROPHILS PERCENT AUTO 73 % (41-73); Platelet Count 333 K/mm3 (150-400); RDW Coefficient Variation 17.4 % (11.7-14.2); RDW Standard Deviation 53.4 fL (35.1-46.3); Red Blood Cell Count 2.98 M/mm3 (4.30-5.90); White Blood Cell Count 14.67 K/mm3 (4.00-11.30)
[2020-12-31 05:42] LABS: Alanine Aminotransfer (ALT/SGP 20 U/L (12-78); Albumin, Blood 1.7 g/dL (3.4-5.0); Albumin/Globulin Ratio 0.4 (0.8-1.8); Alk Phos 119 U/L (50-136); Anion Gap 6 mmol/L (6-16); Aspartate Aminotrans (AST/SGOT 19 U/L (12-37); Bilirubin, Total 0.3 mg/dL (0.1-1.0); Blood Urea Nitrogen 34 mg/dL (8-24); Bun/Creatinine Ratio 30.4 (12.0-20.0); CO2, Blood 21 mmol/L (21-32); Calcium, Blood 8.8 mg/dL (8.5-10.1); Chloride, Blood 114 mmol/L (98-108); Creatinine, Blood 1.12 mg/dL (0.60-1.20); Globulin, Blood 3.9 g/dL (2.2-4.0); Glomerular Filtration Rate >60 (60-); Glucose, Blood 119 mg/dL (70-99); Potassium, Blood 4.6 mmol/L (3.5-5.5); Sodium, Blood 141 mmol/L (136-145); Total Protein, Blood 5.6 g/dL (6.4-8.2)
--- NOTE | 2020-12-31 06:05 | NUR ---
DEPUTY OF COUNTER INTELLIGENCE SUMMARY ADMITTED FOR SEPSIS SECONDARY TO [facility]. PT IS FULL CODE. PT FROM [facility] WITH [facility] IN MULTIPLE STAGES (PICTURES IN CHART). PT CONTINUES TO HAVE BLOOD PRESSURE IN THE 90S SYSTOLIC - PT DENIES DIZZINESS OR OTHER SYMPTOMS. PT RECEIVED IV ABX X2 AND LR X1 BAG. NO OTHER CONCERNS THIS SHIFT. ISOLATION MAINTAINED.
--- NOTE | 2020-12-31 16:37 | NUR ---
SHIFT SUMMARY PT ALERT AND APPEARS ORIENTED, DIFFICULT TO ASSESS HE IS [place] AND NEEDS A BATTERY FOR HIS HEARING AID, WE DO NOT HAVE THE KIND HE NEEDS HERE. PT ABLE TO MAKE NEEDS KNOWN. SUPRAPUBIC CHRONIC VALENCIA CLEAN AND INTACT DRAINING WITH NO DEPENDEDNT LOOPS. PT CAN MAKE NEEDS KNOWN. WOUND CARE COMPLETED TODAY.
--- NOTE | 2021-01-01 02:39 | NUR ---
1 UNIT OF PRBC GIVEN. PT TOLERATED WELL. NO SIGN OF REACTION OBSERVED/REPORTED. PT EDUCATED TO REPORT ANY SIGNS OF DELAYED REACTION VIA WRITTEN NOTE. PT INDICATES UNDERSTANDING. PT IS RESTING AT THIS TIME.
[2021-01-01 04:19] LABS: BASOPHILS ABSOLUTE AUTO 0.09 K/mm3 (0.00-0.23); BASOPHILS PERCENT AUTO 1 % (0-2); EOSINOPHILS ABSOLUTE AUTO 0.67 K/mm3 (0.00-0.68); EOSINOPHILS PERCENT AUTO 5 % (0-6); Hematocrit 27.5 % (37.0-53.0); Hemoglobin 8.5 g/dL (13.5-17.5); IMMATURE GRAN ABSOLUTE AUTO 0.21 K/mm3 (0.00-0.10); IMMATURE GRAN PERCENT AUTO 1 % (0-1); LYMPHOCYTES PERCENT AUTO 19 % (21-46); MONOCYTES ABSOLUTE AUTO 0.83 K/mm3 (0.16-1.47); MONOCYTES PERCENT AUTO 6 % (4-13); Mean Corpuscular HGB 25.8 pg (26.0-34.0); Mean Corpuscular HGB Conc 30.9 g/dL (31.5-36.5); Mean Corpuscular Volume 83 fL (80-100); Mean Platelet Volume 10.6 fL (9.1-12.4); NEUTROPHILS ABSOLUTE AUTO 10.12 K/mm3 (1.96-9.15); NEUTROPHILS PERCENT AUTO 69 % (41-73); Platelet Count 342 K/mm3 (150-400); RDW Standard Deviation 50.9 fL (35.1-46.3); White Blood Cell Count 14.62 K/mm3 (4.00-11.30)
[2021-01-01 04:40] LABS: Albumin, Blood 1.8 g/dL (3.4-5.0); Anion Gap 7 mmol/L (6-16); Blood Urea Nitrogen 33 mg/dL (8-24); Bun/Creatinine Ratio 34.2 (12.0-20.0); CO2, Blood 20 mmol/L (21-32); Calcium, Blood 8.6 mg/dL (8.5-10.1); Chloride, Blood 111 mmol/L (98-108); Creatinine, Blood 0.97 mg/dL (0.60-1.20); Glomerular Filtration Rate >60 (60-); Glucose, Blood 115 mg/dL (70-99); Magnesium, Blood 2.1 mg/dL (1.6-2.4); Phosphorus, Blood 3.8 mg/dL (2.5-4.9); Potassium, Blood 4.6 mmol/L (3.5-5.5); Sodium, Blood 138 mmol/L (136-145)
[2021-01-01 04:49] LABS: Vancomycin, Trough 24.5 ug/mL (5.0-10.0)
--- NOTE | 2021-01-01 05:59 | NUR ---
END OF SHIFT SUMMARY: One unit of PRBC infused. Pt torelated well. No symptoms of reaction observed at this time. Pt positive and enthusiastic about getting better. Pt is very hard of hearing and nursing education is better received through written notes. Pt turned/repositioned q2hrs. Lab called reporting pt's critical vanc trough. Pharmacy notified. Pt resting at this time. Call light within reach.
--- NOTE | 2021-01-01 17:07 | NUR ---
SHIFT SUMMARY PT ALERT AND ORIENTED ABLE TO MAKE NEEDS KNOWN. OBTAINED BATTERY FOR HEARING AID TODAY, PT HAS SUPERPUBIC VALENCIA DRAINING WELL. DUE TO BE CHANGED 01/03, CHANGED DRESSING ON SACRUM, LESS BLEEDING NOTED STILL FRAGILE PURPLE SKIN TURN Q2 AND KEEPING CLEAN.
[2021-01-02 05:56] LABS: BASOPHILS ABSOLUTE AUTO 0.09 K/mm3 (0.00-0.23); BASOPHILS PERCENT AUTO 1 % (0-2); EOSINOPHILS ABSOLUTE AUTO 0.79 K/mm3 (0.00-0.68); EOSINOPHILS PERCENT AUTO 6 % (0-6); Hematocrit 29.1 % (37.0-53.0); IMMATURE GRAN ABSOLUTE AUTO 0.19 K/mm3 (0.00-0.10); IMMATURE GRAN PERCENT AUTO 1 % (0-1); LYMPHOCYTES PERCENT AUTO 23 % (21-46); MONOCYTES ABSOLUTE AUTO 0.84 K/mm3 (0.16-1.47); MONOCYTES PERCENT AUTO 6 % (4-13); Mean Corpuscular HGB 25.9 pg (26.0-34.0); Mean Corpuscular HGB Conc 30.9 g/dL (31.5-36.5); Mean Corpuscular Volume 84 fL (80-100); Mean Platelet Volume 10.7 fL (9.1-12.4); NEUTROPHILS ABSOLUTE AUTO 8.36 K/mm3 (1.96-9.15); NEUTROPHILS PERCENT AUTO 63 % (41-73); Platelet Count 350 K/mm3 (150-400); RDW Coefficient Variation 17.2 % (11.7-14.2); RDW Standard Deviation 52.2 fL (35.1-46.3); Red Blood Cell Count 3.48 M/mm3 (4.30-5.90); White Blood Cell Count 13.37 K/mm3 (4.00-11.30)
[2021-01-02 06:10] LABS: Albumin, Blood 1.7 g/dL (3.4-5.0); Anion Gap 7 mmol/L (6-16); Blood Urea Nitrogen 32 mg/dL (8-24); Bun/Creatinine Ratio 30.5 (12.0-20.0); CO2, Blood 22 mmol/L (21-32); Calcium, Blood 9.2 mg/dL (8.5-10.1); Chloride, Blood 111 mmol/L (98-108); Creatinine, Blood 1.05 mg/dL (0.60-1.20); Glomerular Filtration Rate >60 (60-); Glucose, Blood 106 mg/dL (70-99); Magnesium, Blood 2.1 mg/dL (1.6-2.4); Potassium, Blood 4.7 mmol/L (3.5-5.5); Sodium, Blood 140 mmol/L (136-145)
--- NOTE | 2021-01-02 14:15 | NUR ---
01/02/21- per chart review with Dr. Coronado, pt is stable for discharge back to [facility]. Called facility and they are able to pick the pt before 4pm. Faxed d/c orders to [facility] at facility. Pt's subpubic catheter will be changed by hospital staff prior to d/c. Contacted [facility] with [facility] and pt is still active with them, no need for resumption of home health orders. -shekhar
[2021-01-02] MEDS ORDERED: MULTI-VITAMIN1 EAC2 PO (14:43)
[2021-01-02] MEDS ORDERED: ASCO500 PO (14:43)
[2021-01-02] MEDS ORDERED: DOXY100 PO (14:43)
[2021-01-02] MEDS ORDERED: VITAMIN D31000 UNI1 PO (14:44)
--- NOTE | 2021-01-02 15:32 | NUR ---
PATIENT DISCHARGED TO [facility] [facility] VIA W/C VAN FROM FACILITY. IV SALINE LOCK REMOVED WITHOUT INCIDENT. OFF UNIT AT 1518. NO BELONGINGS LEFT BEHIND IN ROOM.
[2021-01-02 15:57] LABS: Vancomycin, Trough 19.9 ug/mL (5.0-10.0)
== END 2021-01-02 15:18 | disposition home or self-care (01) | DRG 871 ==
LOC: ER 12:52 → MEDS 19:34
PROVIDERS: Family Medicine; Student in an Organized Health Care Education/Training Program; ADMIT Internal Medicine
PROC: 30233N1 Transfusion of Nonautologous Red Blood Cells into Peripheral Vein, Percutaneous Approach (ICD-10-PCS; principal; 2020-12-31)
DX: A41.51 Sepsis due to Escherichia coli [E. coli] (principal); L89.153 Pressure ulcer of sacral region, stage 3; N39.0 Urinary tract infection, site not specified; I50.22 Chronic systolic (congestive) heart failure; L03.317 Cellulitis of buttock; Z16.24 Resistance to multiple antibiotics; D62 Acute posthemorrhagic anemia; Z20.822 Contact with and (suspected) exposure to COVID-19; I11.0 Hypertensive heart disease with heart failure; G47.33 Obstructive sleep apnea (adult) (pediatric); H91.90 Unspecified hearing loss, unspecified ear; E86.1 Hypovolemia; E11.9 Type 2 diabetes mellitus without complications; Z86.718 Personal history of other venous thrombosis and embolism; Z85.46 Personal history of malignant neoplasm of prostate; Z88.5 Allergy status to narcotic agent; Z90.49 Acquired absence of other specified parts of digestive tract; Z90.89 Acquired absence of other organs; Z90.79 Acquired absence of other genital organ(s); Z79.01 Long term (current) use of anticoagulants; Z79.82 Long term (current) use of aspirin; Z79.899 Other long term (current) drug therapy; Z79.84 Long term (current) use of oral hypoglycemic drugs
CPT/HCPCS: 36415; 36430; 71046; 72193; 80048; 80053; 80069; 80202; 81003; 82607; 82728; 82947; 83540; 83550; 83605; 83735; 83880; 84145; 84443; 84484; 85025; 86140; 86850; 86900; 86901; 86923; 87040; 87077; 87086; 87186; 93005; 93010; 96365; 96366; 96367; 96375; 99285-25; A9270; J0696; J1815; J2185; J2405; J3370; J7030; J7040; J7050; J7120; P9016; Q9967; U0004

== ENCOUNTER 2021-01-04 22:06 | Emergency (ER) | payer MEDICARE, OTHER ==
[~2021-01-04] VITALS: Ht 177.8 cm; Wt 99.8 kg
[~2021-01-04 22:06] MED LIST changes: +ASCO500 PO; +DOXY100 PO; +ELIQUIS2.5 MG PO; +MULTI-VITAMIN1 EAC2 PO; +SPIR25 PO; +VITAMIN D31000 UNI1 PO; +VOLTAREN ARTHRI20 GM TOP
[2021-01-04 22:49] LABS: BASOPHILS ABSOLUTE AUTO 0.05 K/mm3 (0.00-0.23); BASOPHILS PERCENT AUTO 0 % (0-2); EOSINOPHILS ABSOLUTE AUTO 0.26 K/mm3 (0.00-0.68); EOSINOPHILS PERCENT AUTO 2 % (0-6); Hematocrit 28.4 % (37.0-53.0); Hemoglobin 9.1 g/dL (13.5-17.5); IMMATURE GRAN ABSOLUTE AUTO 0.16 K/mm3 (0.00-0.10); IMMATURE GRAN PERCENT AUTO 1 % (0-1); LYMPHOCYTES ABSOLUTE AUTO 2.19 K/mm3 (0.84-5.20); LYMPHOCYTES PERCENT AUTO 12 % (21-46); MONOCYTES ABSOLUTE AUTO 0.93 K/mm3 (0.16-1.47); MONOCYTES PERCENT AUTO 5 % (4-13); Mean Corpuscular HGB 26.1 pg (26.0-34.0); Mean Corpuscular Volume 82 fL (80-100); Mean Platelet Volume 10.5 fL (9.1-12.4); NEUTROPHILS ABSOLUTE AUTO 14.01 K/mm3 (1.96-9.15); NEUTROPHILS PERCENT AUTO 80 % (41-73); Platelet Count 344 K/mm3 (150-400); RDW Coefficient Variation 17.5 % (11.7-14.2); RDW Standard Deviation 50.8 fL (35.1-46.3); Red Blood Cell Count 3.48 M/mm3 (4.30-5.90)
[2021-01-04 23:09] LABS: Alanine Aminotransfer (ALT/SGP 22 U/L (12-78); Albumin, Blood 1.7 g/dL (3.4-5.0); Albumin/Globulin Ratio 0.4 (0.8-1.8); Alk Phos 145 U/L (50-136); Anion Gap 9 mmol/L (6-16); Aspartate Aminotrans (AST/SGOT 19 U/L (12-37); Bilirubin, Total 0.4 mg/dL (0.1-1.0); Blood Urea Nitrogen 39 mg/dL (8-24); Bun/Creatinine Ratio 40.8 (12.0-20.0); CO2, Blood 22 mmol/L (21-32); Calcium, Blood 8.8 mg/dL (8.5-10.1); Chloride, Blood 110 mmol/L (98-108); Creatinine, Blood 0.96 mg/dL (0.60-1.20); Globulin, Blood 4.1 g/dL (2.2-4.0); Glomerular Filtration Rate >60 (60-); Glucose, Blood 126 mg/dL (70-99); Magnesium, Blood 1.8 mg/dL (1.6-2.4); Potassium, Blood 4.1 mmol/L (3.5-5.5); Sodium, Blood 141 mmol/L (136-145); Total Protein, Blood 5.8 g/dL (6.4-8.2)
[2021-01-05] MEDS ORDERED: SENNA LAXATIVE8.6 MG PO (00:01)
[2021-01-05] MEDS ORDERED: ONDA4ODT MM (00:01)
== END 2021-01-05 00:56 | disposition home or self-care (01) ==
LOC: ER 22:06
PROVIDERS: Emergency Medicine
DX: K59.00 Constipation, unspecified (principal); I95.9 Hypotension, unspecified; E86.0 Dehydration; I11.0 Hypertensive heart disease with heart failure; I50.20 Unspecified systolic (congestive) heart failure; E11.9 Type 2 diabetes mellitus without complications; Z88.5 Allergy status to narcotic agent; Z79.899 Other long term (current) drug therapy; Z79.01 Long term (current) use of anticoagulants; Z79.84 Long term (current) use of oral hypoglycemic drugs; Z87.891 Personal history of nicotine dependence
CPT/HCPCS: 80053; 83690; 83735; 84145; 85025; 93005; 93010; 99285-25; J7120